=== PATIENT | male | born 1950 | race Caucasian/White ===

== ENCOUNTER → 2018-01-27 | Outpatient (CLI) | payer OTHER ==
[~2018-01-27] MED LIST: BENADRYL25 MG PO; PROZAC 20 MG20 MG PO
--- NOTE | ~2018-01-27 | P ---
[facility] [place] [address] [place] [address] PROCEDURE REPORT Name: RAHEL SINGH JR Room #: REG [facility]#: [id number] Admission: 01/27/18 Attend Phys: Ben Del Angel MD Discharge: Date of : 50 Report #: [id number] THIS REPORT FOR: //name// CC: Ben Krishna DO DATE OF SERVICE: 01/27/2018 BRIEF HISTORY: The patient is a 67-year-old male with development of epigastric pain in the past several months. He also reports a bad taste in his mouth. He had been taking Prilosec 20 mg twice daily for about 2-3 months, but he felt the symptoms just worsening over time and not getting any better. He does report use of Tylenol, but does not report use of typical nonsteroidals. PREOPERATIVE DIAGNOSIS: Epigastric pain. POSTOPERATIVE DIAGNOSES: 1. Scattered antral erosions. 2. Patchy nonerosive bulbar duodenitis. 3. A 3 cm sliding type hiatus hernia. MEDICATIONS: Deep sedation with propofol per Anesthesia. SPECIMEN: Biopsies of erosions and gastric mucosa. ESTIMATED BLOOD LOSS: 3 mL. PROCEDURE: EGD with biopsy. FINDINGS: Prior to propofol sedation, the procedure of upper endoscopy was reviewed with the patient as well as potential risks, benefits, and complications. He indicates he understands and desires to proceed. DESCRIPTION OF PROCEDURE: With the patient in left lateral decubitus position, Fuji video endoscope was inserted in the cervical esophagus under direct vision without difficulty. Examination of this organ through its length revealed normal esophagus down to the squamocolumnar junction. Squamocolumnar junction was inspected and noted to be unremarkable. There was no evidence of Wills mucosa. Intermittently, a small 3 cm sliding type hiatus hernia was seen. Mucosa in the hernia was unremarkable. At that point, scope was advanced into the stomach, was examined on end view as well as retroflexed views. Upon retroflexion, again the small hiatus hernia was seen. No other abnormalities were seen in the proximal stomach. Examination of the distal stomach revealed erosions and several black eschar over there, but no evidence of active bleeding. The pylorus was unremarkable. Duodenal bulb and post-duodenal sweep [address] [address] PROCEDURE REPORT Name: RAHEL SINGH Room #: REG [facility]#: [id number] Admission: 01/27/18 Attend Phys: Ben Del Angel MD Discharge: Date of : 50 Report #: [id number] were inspected. There was patchy duodenitis in the bulb, but the mucosa was intact and no ulcers were seen. Scope was advanced into the third portion of the duodenum. The mucosa was intact. A small duodenal diverticulum was seen in the second portion of duodenum. At that point, scope was withdrawn and careful circumferential views confirmed the above findings. The patient tolerated the procedure well. Biopsies obtained of the gastritis. CONDITION OF THE PATIENT UPON DISCHARGE: Following procedure, the patient drowsy, arousable, conversant and will be discharged home when fully ambulatory. INSTRUCTIONS TO THE PATIENT AND FAMILY AT THE TIME OF DISCHARGE: The patient clearly has erosions in the antrum, a patchy bulbar duodenitis. We will follow up on biopsy specimen with regard to Helicobacter pylori. If he has Helicobacter pylori, antibiotic treatment may be appropriate. He reported that symptoms seemed to get worse on omeprazole. We will try pantoprazole 40 mg twice daily. If he does not have improvement in symptoms in the next several weeks, would next proceed with ultrasound of the gallbladder for further evaluation. He will return to care of Dr. Dior Krishna and return to see me as needed. <ELECTRONICALLY SIGNED> By: Ben Del Angel MD 01/27/18 1712 1002 1225 Ben Del Angel MD /nt
[2018-01-27 08:09] LABS: URINE BILIRUBIN NEGATIVE (Negative); URINE BLOOD TRACE (Negative); URINE CLARITY CLEAR; URINE COLOR YELLOW; URINE GLUCOSE-RANDOM* NEGATIVE (Negative); URINE KETONES NEGATIVE (Negative); URINE LEUKOCYTES NEGATIVE (Negative); URINE NITRITE NEGATIVE (Negative); URINE PROTEIN (DIPSTICK) NEGATIVE (Negative); URINE SPECIFIC GRAVITY 1.015 (1.005-1.035); URINE UROBILINOGEN 0.2 E.U./dl (0.2-1.0)
== END | disposition home or self-care (01) ==
LOC: GI 07:28
PROVIDERS: Anesthesiology
DX: K44.9 Diaphragmatic hernia without obstruction or gangrene (principal); K57.30 Diverticulosis of large intestine without perforation or abscess without bleeding; K31.9 Disease of stomach and duodenum, unspecified
CPT/HCPCS: 62110; 62900

== ENCOUNTER → 2019-05-18 | Outpatient (CLI) | payer OTHER | LOC: RAD 14:19 | DX: J44.9 Chronic obstructive pulmonary disease, unspecified (principal) ==

== ENCOUNTER → 2020-05-10 | Outpatient (CLI) | payer OTHER ==
[~2020-05-10] MED LIST changes: +BENTYL 10 MG CA10 MG PO; +CLONAZEPAM 0.50.5 M1 PO; +CYMBALTA30 MG PO; +FOLIC ACID1 MG PO; +PROTONIX40 M4 PO; +VITAMIN B-121000 MC2 SUBLING
== END ==
LOC: LAB 11:22
PROVIDERS: ATTEND Student in an Organized Health Care Education/Training Program
DX: Z01.818 Encounter for other preprocedural examination (principal); Z11.59 Encounter for screening for other viral diseases

== ENCOUNTER → 2020-05-13 | Outpatient (CLI) | payer OTHER ==
[~2020-05-13] VITALS: Ht 182.9 cm; Wt 78.0 kg
--- NOTE | 2020-05-17 17:06 | PATH ---
[facility] [place] [address] PATHOLOGY RPT PROCEDURE Name: RAHEL SINCLAIR Room #: REG [facility].#: [id number] Admission: 05/13/20 Date of : 50 Discharge: Report #: [id number] Path Case #: [id number] [facility] Accession Number: [id number] . 01 Material submitted: . PART A: small bowel - SMALL BOWEL BX PART B: stomach - BX OF GASTRITIS PART C: hepatic flexure - POLYP AT HEPATIC FLEXURE X5 PART D: cecum - POLYP AT CECUM PART E: colon - POLYP AT MID-ASCENDING COLON. Modifiers: mid, ascending PART F: colon - POLYP AT DISTAL ASCENDING COLON. Modifiers: distal, ascending PART G: colon - POLYP AT 40CM PART H: colon - POLYP AT 30CM X2 PART I: colon - POLYP AT 20CM X2 . 01 Clinical history: . Abdominal pain, history of polyps A. Regarding abdominal pain and weight loss rule out celiac B. Rule H. pylori . 02 Diagnosis: A. Small bowel mucosa, small bowel, endoscopic biopsy: - Mild active and chronic duodenitis with focal fundic-type metaplasia, compatible with peptic duodenitis. - Negative for villous blunting or increase in intraepithelial lymphocytes. . B. Gastric mucosa, gastritis R/O H. pylori, endoscopic biopsy: - Moderate reactive gastropathy. - Negative for intestinal metaplasia or atrophy. - Negative for Helicobacter pylori (properly controlled immunohistochemical stain performed). . C. Polyp x5, hepatic flexure, endoscopic biopsy: - Four fragments showing tubular adenoma without high-grade dysplasia. - One fragment showing hyperplastic changes without any dysplasia. . D. Polyp, at cecum, endoscopic biopsy: - Tubular adenoma. - Negative for high-grade dysplasia. . E. Polyp, at mid ascending colon, endoscopic biopsy: - Tubular adenoma. - Negative for high-grade dysplasia. . F. Polyp, at distal ascending colon, endoscopic biopsy: - Sessile serrated polyp. [facility] [address] [place] [address] PATHOLOGY RPT PROCEDURE Name: RAHEL SINCLAIR Room #: REG [facility].#: [id number] Admission: 05/13/20 Date of : 50 Discharge: Report #: [id number] Path Case #: [id number] - Negative for dysplasia. . G. Polyp, at 40 cm, endoscopic biopsy: - Tubular adenoma. - Negative for high-grade dysplasia. . H. Polyp x2, at 30 cm, endoscopic biopsy: - Hyperplastic polyp x2. - Negative for dysplasia. . I. Polyp x2, at 20 cm, endoscopic biopsy: - All fragments showing hyperplastic polyps. - Negative for dysplasia. (IUV:jhonny; 05/17/2020) QMS 05/17/2020 1508 Local . 02 Electronically signed: . Kandy Haddad MD, Pathologist NPI- [id number] . 01 Gross description: . A. The specimen is received in formalin, labeled "Dottie, Rahel, small bowel BX" and consists of multiple fragments of sahni tissue measuring 1.3 x 0.8 x 0.3 cm in aggregate which are entirely submitted in A1. . B. The specimen is received in formalin, labeled " Dottie, Rahel, BX of gastritis" and consists of 4 fragments of sahni tissue measuring between 0.3 x 0.3 cm and 0.5 x 0.2 cm which are entirely submitted in B1. . C. The specimen is received in formalin, labeled " Dottie, Rahel, polyp at hepatic flexure x5" and consists of multiple segments of sahni tissue measuring 2.0 x 0.9 x 0.3 cm in aggregate which are entirely submitted in C1. . D. The specimen is received in formalin, labeled " Dottie, Rahel, polyp at cecum" and consists of 2 fragments of sahni tissue measuring 0.6 x 0.2 cm and 0.3 x 0.3 cm which are entirely submitted in D1. . E. The specimen is received in formalin, labeled " Dottie, Rahel, polyp at mid ascending colon" and consists of a fragment of sahni tissue measuring 0.3 x 0.2 cm which is entirely submitted in E1. . F. The specimen is received in formalin, labeled " Dottie, Rahel, polyp at distal ascending colon" and consists of 2 fragments of sahni-brown tissue measuring 0.2 x 0.2 cm and 0.3 x 0.3 cm which are entirely submitted in F1. . [facility] [address] [place] [address] PATHOLOGY RPT PROCEDURE Name: RAHEL SINCLAIR W Room #: [facility]#: [id number] Admission: 05/13/20 Date of : 50 Discharge: Report #: [id number] Path Case #: [id number] G. The specimen is received in formalin, labeled " Rahel Sinclair, polyp at 40 cm" and consists of a segment of sahni tissue measuring 1.1 x 0.3 x 0.2 cm which is entirely submitted in G1. . H. The specimen is received in formalin, labeled " Dottie, Rahel, polyp at 30 cm x2" and consists of 4 segments of sahni tissue measuring between 0.3 x 0.3 cm and 1.1 x 0.5 cm which are entirely submitted in H1. . I. The specimen is received in formalin, labeled " Dottie, Rahel, polyp at 20 cm" and consists of 3 segments of sahni tissue measuring between 0.7 x 0.6 cm and 0.5 x 0.2 cm which are entirely submitted in I1. (SDY; 05/16/2020) SYU/LADARIUS 05/16/2020 1314 Local . 02 Pathologist provided ICD-10: K29.80, K31.9, D12.3, D12.0, D12.2, K63.5, D12.6 . 02 CPT . 880527, 718075, 971442, 646265, 602021, 405684, 460514, 803993, 455078, P71691 Specimen Comment: A courtesy copy of this report has been sent to [phone], [phone] Specimen Comment: [id number] Specimen Comment: Report sent to / Performed at: 01 [facility] [address], [place], [place] [id number] MD Ole Brooks MD Phone: [phone] Performed at: [address] [id number] MD Kandy Haddad MD Phone: [phone]
--- NOTE | 2020-05-19 09:01 | P ---
[facility] [place] [address] [place] [address] PROCEDURE REPORT Name: RAHEL SINGH Room #: REG [facility]#: [id number] Admission: 05/13/20 Attend Phys: Ben Del Angel MD Discharge: Date of : 50 Report #: [id number] THIS REPORT FOR: cc: Chad Quintero Ronald D. DO Thesing, John A. MD ~ CC: Ben Quintero DO DATE OF SERVICE: 05/13/2020 OUTPATIENT COLONOSCOPY REPORT BRIEF HISTORY: The patient is a 69-year-old male with history of colon polyps for high risk screening colonoscopy. In addition, he has had some recent abdominal pain and weight loss. Please see upper endoscopy report as well. PREOPERATIVE DIAGNOSIS: History of multiple colon polyps. POSTOPERATIVE DIAGNOSES: 1. Multiple colon polyps. 2. Moderate diverticulosis coli. MEDICATIONS: Deep sedation with propofol per anesthesia. SPECIMENS: 1. Polyps x 5, hepatic flexure. 2. Cecal polyp. 3. Mid ascending colon polyp. 4. Distal ascending colon polyp. 5. Polyp at 40 cm. 6. Polyps x 2 at 30 cm. 7. Polyps x 2 at 20 cm. ESTIMATED BLOOD LOSS: 3 mL. PROCEDURES: Colonoscopy to cecum and terminal ileum with snare polypectomy and biopsy. FINDINGS: Prior to propofol sedation, procedure of colonoscopy discussed with the patient as well as potential risks and its complications. He indicates he understands and desires that we proceed. DESCRIPTION OF PROCEDURE: With the patient in left lateral decubitus position, digital examination was completed, which revealed no abnormalities. [facility] [address] [place] [address] PROCEDURE REPORT Name: RAHEL SINGH Room #: REG [facility] [place].#: [id number] Admission: 05/13/20 Attend Phys: Ben Del Angel MD Discharge: Date of : 50 Report #: [id number] Subsequently, the Olympus video colonoscope was introduced into the rectum, advanced under direct vision to the cecum done with minimal difficulty. The cecum was identified by the ileocecal valve and the appendiceal orifice. I was able to visualize the distal segment of terminal ileum, which was inspected and noted to be unremarkable. At that point, the scope was slowly withdrawn and careful circumferential views obtained including retroflexion of the scope in the ascending colon. Upon slow withdrawal of the scope, the patient was noted to have an excellent prep. The mucosa was within normal limits, normal vascular pattern, normal light reflex. As we withdrew the scope, he was noted to have multiple polyps. In the cecum, there was a diminutive polyp removed by cold snare polypectomy and recovered. In the mid ascending colon, another diminutive polyp was seen and removed by cold snare polypectomy. In the distal ascending colon, a very small polyp on the edge of fold was seen and removed with cold biopsy forceps. In addition, I might also point out that in the proximal ascending colon, tattoos were seen and old polypectomy site was seen. The scar was identified and no residual polyp tissue was seen. The scope was further withdrawn. At the hepatic flexure, a total of 5 polyps were seen. They range in size from about 3 mm to 6 mm. The 6 mm polyp was fairly bulking and sessile polyp, all removed by cold snare polypectomy. As we withdrew the scope through the transverse colon and descending colon, no additional polyps were seen. In the sigmoid colon, there was moderately severe diverticular disease without endoscopic evidence of diverticulitis. At 40 cm, a flat polyp was seen and removed by cold snare polypectomy, there was no more than 5 mm. At 30 cm, two flat polyps were seen, the largest was about 5 mm, both removed by cold snare polypectomy and recovered. At 20 cm, two more flat polyps were seen, the largest was about 6 mm, both removed by cold snare polypectomy and recovered. Scope was withdrawn in the rectum and a few small scattered hyperplastic polyps were seen. Scope was further withdrawn, no additional abnormalities were seen. Upon retroflexion, no abnormalities were seen. Scope was withdrawn. The patient tolerated the procedure well. CONDITION OF THE PATIENT UPON DISCHARGE: Following procedure, the patient drowsy, aroused, conversant and will be discharged home when fully ambulatory. INSTRUCTIONS TO THE PATIENT AND FAMILY AT THE TIME OF DISCHARGE: Multiple polyps identified and removed as described above. The patient has had multiple polyps in the past and also an advanced adenoma. His polyp count is rising significantly. We will follow up on pathology and make further recommendations. At this point, I would suggest he return in 2 years for high risk screening colonoscopy in view of the large number of polyps, which have been removed. <ELECTRONICALLY SIGNED> By: Ben Del Angel MD 05/19/20 0901 1004 1032 Ben Del Angel MD /nt
--- NOTE | 2020-05-19 09:01 | P ---
[facility] [place] [address] [place] [address] PROCEDURE REPORT Name: RAHEL SINGH Room #: REG [facility]#: [id number] Admission: 05/13/20 Attend Phys: Ben Del Angel MD Discharge: Date of : 50 Report #: [id number] THIS REPORT FOR: cc: Chad Quintero Ronald D. DO Thesing, John A. MD ~ CC: Ben Brown OUTPATIENT UPPER ENDOSCOPY REPORT BRIEF HISTORY: The patient is a 69-year-old male with history of reflux disease. He also has had vague upper abdominal pain. In addition, he has had a weight loss of some 20 pounds. PREOPERATIVE DIAGNOSES: Reflux disease, abdominal pain, weight loss. POSTOPERATIVE DIAGNOSES: 1. [id number] diffuse gastritis. 2. Patchy bulbar duodenitis. 3. A 2-3 cm sliding type hiatus hernia. MEDICATIONS: Deep sedation with propofol per anesthesia. SPECIMENS: 1. Small bowel biopsy, rule out celiac disease. 2. Biopsies of gastritis. ESTIMATED BLOOD LOSS: 3 mL. PROCEDURE: EGD with biopsy. FINDINGS: Prior to propofol sedation, procedure of upper endoscopy was discussed with the patient as well as potential risks and its complications. He indicates he understands and desires to proceed. DESCRIPTION OF PROCEDURE: With the patient in left lateral decubitus position, the Olympus video endoscope was inserted in the cervical esophagus under direct vision without difficulty. Examination of this organ through its entire style length revealed normal esophageal mucosa down the squamocolumnar junction. Squamocolumnar junction was inspected and noted to be unremarkable. No evidence of ulcers, erosions, strictures or mass lesions. In addition, a 2-3 cm sliding type hiatus hernia was seen. The mucosa in the hernia was unremarkable. Scope was advanced in the stomach, was examined on end view as well as retroflexed views. He does not have a pattern of a diffuse gastritis, which was moderate. There was mostly erythema in the antrum of the stomach and there were nodular [facility] [address] [place] [address] PROCEDURE REPORT Name: RAHEL SINGH Room #: REG [facility].#: [id number] Admission: 05/13/20 Attend Phys: Ben Del Angel MD Discharge: Date of : 50 Report #: [id number] changes in the body of the stomach. Multiple biopsies were obtained. Upon retroflexion, the hiatus hernia was seen. The pylorus was unremarkable. The duodenal bulb revealed patchy bulbar duodenitis. Biopsies were obtained of the second portion of the duodenum as well as bulb to evaluate for celiac disease. No ulcers were seen. At that point, the scope was slowly withdrawn and careful circumferential views confirmed the above findings. The patient tolerated the procedure well. CONDITION OF THE PATIENT UPON DISCHARGE: Following procedure, the patient drowsy, aroused, conversant and will be discharged home when fully ambulatory. INSTRUCTIONS TO THE PATIENT AND FAMILY AT THE TIME OF DISCHARGE: He has had complaints of abdominal pain. He does have some gastritis, although I am not sure that is responsible for his pain; regardless, we will have double up on his PPI to twice daily. Also, we will follow up on biopsies and make further recommendations. He is to return to see me in followup in the office in about 4 weeks. As far as his weight loss, I do not see any definite abnormalities. <ELECTRONICALLY SIGNED> By: Ben Del Angel MD 05/19/20 0901 1010 1040 Ben Del Angel MD /nt
== END | disposition home or self-care (01) ==
LOC: GI 07:06
PROVIDERS: ATTEND Specialist
DX: R10.9 Unspecified abdominal pain (principal); R63.4 Abnormal weight loss; D12.0 Benign neoplasm of cecum; D12.2 Benign neoplasm of ascending colon; D12.3 Benign neoplasm of transverse colon; D12.5 Benign neoplasm of sigmoid colon; K57.30 Diverticulosis of large intestine without perforation or abscess without bleeding; K29.70 Gastritis, unspecified, without bleeding; K29.80 Duodenitis without bleeding; K44.9 Diaphragmatic hernia without obstruction or gangrene; K21.9 Gastro-esophageal reflux disease without esophagitis; J44.9 Chronic obstructive pulmonary disease, unspecified; F32.9 Major depressive disorder, single episode, unspecified; F41.9 Anxiety disorder, unspecified; F17.210 Nicotine dependence, cigarettes, uncomplicated; Z98.890 Other specified postprocedural states; Z79.899 Other long term (current) drug therapy; Z85.46 Personal history of malignant neoplasm of prostate; Z88.0 Allergy status to penicillin; Z91.040 Latex allergy status; Z88.8 Allergy status to other drugs, medicaments and biological substances
CPT/HCPCS: 62110; 62900

== ENCOUNTER → 2020-06-27 | Outpatient (CLI) | payer OTHER | LOC: RAD 13:17 | PROVIDERS: ATTEND Internal Medicine | DX: J44.9 Chronic obstructive pulmonary disease, unspecified (principal) ==

== ENCOUNTER → 2021-07-10 | Outpatient (CLI) | payer OTHER | LOC: CAT 13:47 | PROVIDERS: ATTEND Internal Medicine | DX: Z12.2 Encounter for screening for malignant neoplasm of respiratory organs (principal); Z87.891 Personal history of nicotine dependence; J98.11 Atelectasis; K44.9 Diaphragmatic hernia without obstruction or gangrene ==